=== PATIENT | male | born 1995 | race Caucasian/White ===

== ENCOUNTER 2024-01-31 22:01 | Emergency (ER) | payer SELFPAY ==
[~2024-01-31] VITALS: Ht 165.1 cm; Wt 75.0 kg
[2024-01-31] MEDS: PROPOFOL 200MG/20ML VIAL IV ONE (00:43)
[2024-01-31] MEDS: KETAMINE HCL 50 MG/ML 10ML IV ONE (00:43)
[2024-01-31] MEDS: MORPHINE SULFATE 4 MG/ML INJ (FOR IV/IM USE) IV ONE (22:57)
[2024-01-31] MEDS: ONDANSETRON HCL 4MG/2ML INJ IV ONE (22:57)
[2024-01-31] MEDS: ACETAMINOPHEN 1000MG/100ML 100 ML IV ONE (22:57)
[2024-02-01] MEDS ORDERED: NAPR-1164 MT (00:53)
[2024-02-01 00:55] VITALS: O2SAT 100
[2024-02-01 01:22] VITALS: BP 134/79; PULSE 53; RESP 15; TEMP 98.2; O2SAT 99
== END 2024-02-01 01:22 | disposition home or self-care (01) ==
LOC: ER 22:01
DX: S43.004A Unspecified dislocation of right shoulder joint, initial encounter (principal); F12.10 Cannabis abuse, uncomplicated; X58.XXXA Exposure to other specified factors, initial encounter; Y93.89 Activity, other specified; Y92.89 Other specified places as the place of occurrence of the external cause; Y99.8 Other external cause status
CPT/HCPCS: 99285; 23650; 96365; 96375; 73030 ×2; 99152; J3490; J2405; J2704; J2270; J0131